=== PATIENT | female | born 1945 | race Caucasian/White ===

== ENCOUNTER → 2017-10-15 | Outpatient (CLI) | payer MEDICARE ==
--- NOTE | 2017-10-15 10:22 | XR ---
EXAMINATION TYPE: XR foot complete LT DATE OF EXAM: 10/15/2017 CLINICAL HISTORY: Left foot injury was localized pain to the fifth metatarsal area TECHNIQUE: Frontal, lateral, and oblique images of the left foot are obtained. COMPARISON: None FINDINGS: There is a transversely oriented nondisplaced, noncomminuted, intra-articular fracture of t he base of the fifth metatarsal with overlying soft tissue swelling. This is located approximately 1. 3 cm from the base of the fifth metatarsal. No additional fracture is identified within the left foot . Mild degenerative changes of the distal interphalangeal joints are seen as small marginal osteophyt es. IMPRESSION: Intra-articular, noncomminuted, nondisplaced fracture of the base of the fifth metatarsal with overlying soft tissue swelling. No additional fracture of the left foot. Findings were called t o the ordering provider by the technologist Lindy at 10:19 AM on 10/15/2017.
== END | disposition home or self-care (01) ==
LOC: RADXRMAIN 09:43
PROVIDERS: ATTEND Physician Assistant Medical
DX: S92.355A Nondisplaced fracture of fifth metatarsal bone, left foot, initial encounter for closed fracture (principal)

== ENCOUNTER → 2017-11-14 | Outpatient (CLI) | payer MEDICARE ==
--- NOTE | 2017-11-14 09:42 | US ---
EXAMINATION TYPE: US abdomen complete DATE OF EXAM: 11/14/2017 COMPARISON: CT CLINICAL HISTORY: R10.10 Upper ABD Pain. EXAM MEASUREMENTS: Liver Length: 19.3 cm Gallbladder Wall: 0.2 cm CBD: 0.6 cm Spleen: 10.4 cm Right Kidney: 12.0 x 4.2 x4.6 cm Left Kidney: 11.3 x 5.9 x 5.5 cm Morbidly obese patient. Technically difficult study. Pancreas: Tail obscured by overlying bowel gas Liver: Increased attenuation, hepatomegaly, hypoechoic area seen in right liver, it is unclear wheth er this could represent previously hemangioma or focal fatty sparing, measuring 3.7 x 5.4 x 3.6cm. Sm all cyst seen in left lobe measuring 0.9 x 0.4 x 0.5cm Gallbladder: wnl Evidence for sonographic Medrano's sign: CBD: wnl Spleen: wnl Right Kidney: probable stone measuring 0.5 x 0.4 x 0.3cm Left Kidney: wnl Upper IVC: wnl Abd Aorta: mostly obscured by bowel gas and obesity, small portion visualized proximal wnl The intrahepatic portion of the IVC and proximal abdominal aorta are within normal limits. There is no evidence of cholelithiasis. Common bile duct is unremarkable. The visualized portions of the valencia creas are homogenous. The spleen is unremarkable. Kidneys are symmetric and free of hydronephrosis. No renal lesions are seen. IMPRESSION: 1. Hepatomegaly. 2. Hemangioma versus focal fatty sparing right hepatic lobe. CT correlation recommended. 3 right heidi l calculus.
--- NOTE | 2017-11-14 09:48 | XR ---
EXAMINATION TYPE: XR ribs RT DATE OF EXAM: 11/14/2017 CLINICAL HISTORY: Pain, Fall Four views of the ribs fail demonstrate evidence for displaced rib fracture or secondary sign of rib fracture. Visualized lungs are clear. No evidence for pneumothorax. IMPRESSION: 1. No displaced rib fractures seen. ICD 10 NO FRACTURE, INITIAL EVALUATION
== END | disposition home or self-care (01) ==
LOC: RADUSWWP 08:19
PROVIDERS: ATTEND Family Medicine
DX: R16.0 Hepatomegaly, not elsewhere classified (principal); R07.81 Pleurodynia
CPT/HCPCS: 76700

== ENCOUNTER → 2017-12-21 | Outpatient (CLI) | payer MEDICARE ==
--- NOTE | 2017-12-21 14:04 | BD ---
EXAMINATION TYPE: Axial Bone Density DATE OF EXAM: 12/21/2017 COMPARISON: NONE CLINICAL HISTORY: 72 YR OLD FEMALE....ICD-10 CODE: Z78.0 ASYMPTOMATIC MENOPAUSAL STATE Height: 66 Weight: 262 FRAX RISK QUESTIONS: Glucocorticoids (More than 3mos): YES (Ex: prednisone, prednisolone, methylprednisolone, dexamethasone, and hydrocortisone). History of Fracture in Adulthood: YES Secondary Osteoporosis: YES 3. Menopause before 45: YES AT 41 YRS OLD 5. Chronic liver disease: NO JUST A LITTLE FATTY RISK FACTORS HISTORY OF: LT FOOT FRACTURE AT 72 YRS OLD, AN PREVIOUSLY 25 YRS AGO, AND FINGER CHILD Active: BEST SHE CAN, BROKEN LT FOOT Diet low in dairy products/other sources of calcium: NO Postmenopausal woman: TOTAL HYST AT AGE 41 YRS OLD Lost more than 2 inches in height since high school: YES MEDICATIONS: Prednisone or other steroids: ASTHMA, NEBULIZER, PULMACORT, VENTOLIN, TOPICAL STERIOID FOR ROSACEA How Long: FOR YRS Additional Medications: WELLBUTRIN, METFORMIN, REFLUX MEDS, Additional History: TOTAL KNEE RT, ICD IN CHEST, DIABETIC, ROSACEA, ARTHRITIS EXAM MEASUREMENTS: Bone mineral densitometry was performed using the [employer] System. Bone mineral density as measured about the Lumbar spine is: ----- L1-L4(G/cm2): 1.361 T Score Values are as follows: ----- L1: 0.4 ----- L2: 1.8 ----- L3: 2.7 ----- L4: 1.0 ----- L1-L4: 1.5 Bone mineral density FIRST BONE DENSITY AT MPH Bone mineral density about the R hip (g/cm2): 1.002 Bone mineral density about the L hip (g/cm2): 1.046 T Score values are as follows: -----R Neck: -0.5 -----L Neck: -0.4 -----R Total: 0.0 -----L Total: 0.3 Bone mineral density FIRST AT MPH FRAX%s: THERE IS A 12.8% CHANCE OF A MAJOR OSTEOPOROTIC FX AND A 1.4% FOR A HIP FX.....PROBABILITY OF FX IN 10 YRS TIME IMPRESSION: Normal (Values between +1 and -1 indicate normal bone mass). Consider repeating this study in 5 year s or sooner if there is some new clinical indication. NOTE: T-SCORE=SD OF THE YOUNG ADULT MEAN.
== END | disposition home or self-care (01) ==
LOC: RADBDWWP 12:41
PROVIDERS: ATTEND Family Medicine
DX: Z78.0 Asymptomatic menopausal state (principal); R30.0 Dysuria
CPT/HCPCS: 77080